=== PATIENT | male | born 1995 | race Caucasian/White ===

== ENCOUNTER → 2020-11-21 08:27 | Outpatient (CLI) | payer OTHER, SELFPAY ==
[2020-11-21] MEDS: COVID-19 VACC #1, MRNA(MOD) 100 MCG/0.5 ML VIAL IM (08:34)
== END ==
PROVIDERS: PCP Family Medicine; Visit Provider Internal Medicine
DX: Z23 Encounter for immunization (principal)
CPT/HCPCS: 0011A; 91301

== ENCOUNTER → 2020-12-20 10:29 | Outpatient (CLI) | payer OTHER, SELFPAY ==
[2020-12-20] MEDS: COVID-19 VACC #2, MRNA(MOD) 100 MCG/0.5 ML VIAL IM (10:32)
== END ==
PROVIDERS: PCP Family Medicine; Visit Provider Internal Medicine
DX: Z23 Encounter for immunization (principal)
CPT/HCPCS: 0012A; 91301

== ENCOUNTER 2021-03-27 14:09 | Emergency (ER) | payer OTHER, SELFPAY ==
[2021-03-27 14:14] VITALS: BP 152/109; PULSE 87; RESP 16; TEMP 36.7; O2SAT 98; BMI 25.8
[2021-03-27 16:00] VITALS: BP 156/76; PULSE 67; TEMP 36.9; O2SAT 99
--- NOTE | 2021-03-27 16:02 | PC.NURSE ---
Patient c/o sore throat x 2 wks. Denies pain with swallowing, mild post-nasal drip, denies fever. Rapid strep negative in triage.
[2021-03-27 16:27] LABS: COVID19 -Nasal RAPID Negative (Negative)
[2021-03-27 16:30] VITALS: BP 141/94; PULSE 71; O2SAT 99
--- NOTE | 2021-03-27 16:45 | ED.URI ---
HPI - URI/Sore Throat <Ponce Tello PA-C - Last Filed: 03/27/21 16:49> General Chief Complaint: Upper Respiratory Symptoms Stated Complaint: throat problems Time Seen by Provider: 03/27/21 16:01 Source: patient Mode of arrival: Ambulatory History of Present Illness HPI Narrative: Catarino presents today with chief complaint of sore throat that started 2 days ago in addition to slight runny nose. He reports an occasional cough. He is vaccinated for COVID and denies any known exposures to anyone that is ill at this time. He denies any significant chest pain, difficulty breathing, headache, nausea, vomiting, diarrhea, abdominal pain, fatigue or any other acute concerns or complaints at this time. He has not tried anything to help alleviate symptoms at this time. Related Data Previous Rx's Medication Instructions Recorded fluoxetine 20 mg tablet 20 mg PO QDAY #90 tab 12/28/17 dextroamphetamine-amphetamine 10 10 mg PO DAILY #13 tab 07/26/18 mg tablet dextroamphetamine-amphetamine ER 20 mg PO QAM #13 cap 07/26/18 20 mg 24hr capsule,extend release (Adderall XR) hydrocodone 5 mg-acetaminophen 325 1 tab PO BID #26 tab 07/26/18 mg tablet ([place]) Allergies Allergy/AdvReac Type Severity Reaction Status Date / Time No Known Drug Allergies Allergy Verified 03/27/21 14:17 Review of Systems <Ponce Tello PA-C - Last Filed: 03/27/21 16:49> Review of Systems Narrative: As per HPI Patient History <Ponce Tello PA-C - Last Filed: 03/27/21 16:49> Medical History (Updated 03/27/21 @ 16:49 by Ponce Tello PA-C) ADHD (attention deficit hyperactivity disorder) Anxiety Chronic low back pain OCD (obsessive compulsive disorder) Social History marital status: unmarried,single number of children: 0 household members: family lives independently: Yes caregiver/support person: No housing: house education level: high school occupational status: employed Smoking Status: Never smoker second hand exposure: No alcohol intake: current substance use type: marijuana Smoking Status: Never smoker alcohol intake frequency: a few times a month Substance Use Type: marijuana Exam <Ponce Tello PA-C - Last Filed: 03/27/21 16:49> Narrative Exam Narrative: Const General: cooperative, healthy appearing, comfortable and no acute distress Nutritional Appearance: average body habitus and well nourished Orientation: alert and oriented x3 [facility] Head: normal to inspection and normocephalic Ears: hearing grossly normal bilaterally, external ears normal, TM's normal bilaterally, EAC's normal, mastoids normal and no periauricular adenopathy Nose: external nose normal, nares normal and no nasal discharge Face and sinus: normal facial exam, sinuses nontender and face symmetric Mouth: oral mucosae normal, lip normal, tongue normal and moist mucous membranes Teeth and gingiva: dentition normal and gingiva normal Throat: posterior oropharynx slightly erythematous without exudate or edema uvula midline, positive postnasal drainage and no uvular edema Eyes periorbital findings normal, eyelids normal, conjunctivae normal Neck: normal visual inspection, full ROM, no lymphadenopathy, no meningeal signs and supple Resp normal respiratory effort, able to speak in complete sentences, not labored and no respiratory distress, clear to auscultation bilaterally, no crackles, no rales and no wheezes Cardio regular rate regular rhythm Heart Sounds: no gallops, no murmurs and no rubs Neuro Alert and Oriented x3, normal gait, moves all extremities. Initial Vital Signs Initial Vital Signs: Vital Signs Temperature 98.1 F 03/27/21 14:14 Pulse Rate 87 03/27/21 14:14 Respiratory Rate 16 03/27/21 14:14 Blood Pressure 152/109 H 03/27/21 14:14 Pulse Oximetry 98 03/27/21 14:14 <Macey Arceo DO - Last Filed: 03/28/21 08:42> Initial Vital Signs Initial Vital Signs: Vital Signs Temperature 98.1 F 03/27/21 14:14 Pulse Rate 87 03/27/21 14:14 Respiratory Rate 16 03/27/21 14:14 Blood Pressure 152/109 H 03/27/21 14:14 Pulse Oximetry 98 03/27/21 14:14 Course <Ponce Tello PA-C - Last Filed: 03/27/21 16:49> Orders Ordered: ED Orders 03/27/21 16:09 COVID19 -Nasal swab/Pre-Proc Stat Vital Signs Vital signs: Vital Signs - 8 hr 03/27/21 14:14 03/27/21 16:00 Temperature 98.1 F 98.5 F Pulse Rate 87 67 Respiratory Rate 16 Blood Pressure 152/109 H 156/76 H Pulse Oximetry 98 99 <Macey Arceo DO - Last Filed: 03/28/21 08:42> Orders Ordered: ED Orders 03/27/21 16:09 COVID19 -Nasal swab/Pre-Proc Stat Vital Signs Vital signs: Vital Signs - 8 hr 03/27/21 14:14 03/27/21 16:00 Temperature 98.1 F 98.5 F Pulse Rate 87 67 Respiratory Rate 16 Blood Pressure 152/109 H 156/76 H Pulse Oximetry 98 99 MDM - URI/Sore Throat <Ponce Tello PA-C - Last Filed: 03/27/21 16:49> Lab Data Labs: Lab Results 03/27/21 Range/Units 16:09 SARS-CoV-2 (PCR) Negative (Negative) Point of Care Testing Rapid Strep A Negative MDM Narrative Medical decision making narrative: Patient is well-appearing at this time and has very reassuring physical examination. No evidence of peritonsillar abscess, retropharyngeal abscess. COVID test is negative as is his strep swab. Will discharge home at this time with symptomatic therapy for viral upper respiratory infection. Return precautions were discussed. Patient verbalizes understanding and agrees to plan and has no further concerns at this time. Thank you A [id number] system was used with the dictation of this note. Please disregard any spelling or grammatical errors. <Macey Arceo, - Last Filed: 03/28/21 08:42> Lab Data Labs: Lab Results 03/27/21 Range/Units 16:09 SARS-CoV-2 (PCR) Negative (Negative) Point of Care Testing Rapid Strep A Negative Discharge Plan Departure Patient Disposition: Home Clinical Impression: Upper respiratory infection Qualifiers: URI type: unspecified viral URI Qualified Code(s): J06.9 - Acute upper respiratory infection, unspecified Activity Restrictions/Additional Instructions: Upper Respiratory infection- likely viral. Recommend symptomatic therapy with hot tea/honey, ibuprofen/tylenol for pain and fever. Throat lozenges for throat pain and drink lots of water and broth. Mucinex, Sudafed, Flonase nasal spray may be helpful. Return precautions include worsening fever or neck stiffness, difficulty breathing, chest pain, lower leg swelling, or any other concerns. Follow up with primary care provider as needed. Patient verbalizes understanding and agrees to plan and has no further concerns at this time. Thank you A [id number] system was used with the dictation of this note. Please disregard any spelling or grammatical errors. Prescriptions: No Action dextroamphetamine-amphetamine [Adderall XR] 20 mg capsule,extended release 24hr 20 mg PO QAM Qty: 13 RF: 0 dextroamphetamine-amphetamine 10 mg tablet 10 mg PO DAILY Qty: 13 RF: 0 hydrocodone-acetaminophen [[place]] 5-325 mg tablet 1 tab PO BID Qty: 26 RF: 0 fluoxetine 20 mg tablet 20 mg PO QDAY Qty: 90 RF: 12 Referrals: Adela Graham MD [Primary Care Provider] - <Macey Arceo DO - Last Filed: 03/28/21 08:42> Cosign ED Attending Quentinature Attestation: I was immediately available in the department for consultation. Documentation has been reviewed.
== END 2021-03-27 17:09 | disposition home or self-care (01) ==
PROVIDERS: Emergency Provider Physician Assistant; PCP Family Medicine
DX: J06.9 Acute upper respiratory infection, unspecified (principal); R05 Cough; Z20.822 Contact with and (suspected) exposure to COVID-19
CPT/HCPCS: 87635; 87880; 99282; C9803

== ENCOUNTER → 2021-04-11 10:47 | Outpatient (CLI) | payer SELFPAY ==
[2021-04-11 12:23] LABS: TSH w/ Reflex to FT4 1.64 uIU/mL (0.47-4.68)
== END ==
PROVIDERS: PCP Family Medicine; Referring Provider Physician Assistant; Visit Provider Physician Assistant
DX: R22.1 Localized swelling, mass and lump, neck (principal)
CPT/HCPCS: 36415; 84443

== ENCOUNTER 2021-04-22 16:44 | Emergency (ER) | payer SELFPAY ==
[2021-04-22 16:49] VITALS: BP 173/90; PULSE 82; RESP 16; TEMP 36.7; O2SAT 98
[2021-04-22 19:00] VITALS: BP 145/84; PULSE 57; O2SAT 99
--- NOTE | 2021-04-22 19:47 | ED_ITS ---
HPI - General Adult <Arcelia Ryan PA-C - Last Filed: 04/22/21 19:57> General Chief complaint: Upper Respiratory Symptoms Stated complaint: lump in throat, hacking, choking,trouble swallowin Time Seen by Provider: 04/22/21 18:04 Source: patient Mode of arrival: Ambulatory History of Present Illness HPI narrative: 25-year-old male with no reported past medical history presents to the ED with throat discomfort, a lump in the throat for 1 month. Patient states that he feels a palpable lump in his throat, a constant urge to clear his throat, cough, burp. Patient denies fever, chills, dysphagia, shortness of breath, chest pain, nausea, vomiting, abdominal pain, lightheadedness, dizziness, syncope. Patient has a strong family history of hypothyroidism, with both siblings being hypothyroid. Patient was seen at the walk-in clinic on 04/11/2021 for the same complaint, TSH normal. Patient denies a history of GERD, however says that he has been frequently burping over the last month. Related Data Previous Rx's Medication Instructions Recorded fluoxetine 20 mg tablet 20 mg PO QDAY #90 tab 12/28/17 dextroamphetamine-amphetamine 10 10 mg PO DAILY #13 tab 07/26/18 mg tablet dextroamphetamine-amphetamine ER 20 mg PO QAM #13 cap 07/26/18 20 mg 24hr capsule,extend release (Adderall XR) hydrocodone 5 mg-acetaminophen 325 1 tab PO BID #26 tab 07/26/18 mg tablet ([place]) Allergies Allergy/AdvReac Type Severity Reaction Status Date / Time No Known Drug Allergies Allergy Verified 04/11/21 10:39 Review of Systems <Arcelia Ryan PA-C - Last Filed: 04/22/21 19:57> Constitutional Constitutional: Denies chills, Denies fatigue, Denies fever(s), Denies frequent falls, Denies lethargy and Denies weakness Eyes Eyes: Denies change in vision, Denies eye discharge, Denies irritation and Denies loss of vision ENT Ears, Nose, Mouth, and Throat: Denies change in voice, Denies dizziness, Denies nasal congestion, Denies neck pain, Denies sore throat and Denies throat swelling Comments: Lump in throat. Coughing to clear throat Cardiovascular Cardiovascular: Denies chest pain, Denies irregular heart rhythm, Denies lightheadedness, Denies palpitations, Denies dyspnea, Denies dyspnea on exertion and Denies orthopnea Respiratory Respiratory: Reports cough, Denies dyspnea, Denies dyspnea on exertion and Denies wheezing Gastrointestinal Gastrointestinal: Denies abdominal pain, Denies change in bowel habits, Denies diarrhea, Denies nausea and Denies vomiting Comments: Burping constantly Musculoskeletal Musculoskeletal: Denies neck pain and Denies numbness Integumentary/Breasts Skin/Breast: Denies pruritus, Denies erythema, Denies rash and Denies wounds Neurologic Neurologic: Denies behavioral changes, Denies confusion, Denies dizziness, Denies frequent falls, Denies loss of vision, Denies numbness and Denies weakness Psychiatric Psychiatric: Denies anxiety, Denies behavioral changes, Denies confusion, Denies depression, Denies homicidal ideation and Denies suicidal ideation Endocrine Endocrine: Denies fatigue, Denies flushing and Denies palpitations Hematologic/Lymphatic Hematologic/Lymphatic: Denies easy bruising Allergic/Immunologic Allergic/Immunologic: Denies urticaria, Denies throat swelling and Denies wheezing Patient History <Arcelia Ryan PA-C - Last Filed: 04/22/21 19:57> Medical History ADHD (attention deficit hyperactivity disorder) Anxiety Chronic low back pain OCD (obsessive compulsive disorder) Social History marital status: unmarried,single number of children: 0 household members: family lives independently: Yes caregiver/support person: No housing: house education level: high school occupational status: employed Smoking Status: Current every day smoker second hand exposure: No alcohol intake: current substance use type: marijuana Smoking Status: Current every day smoker tobacco type: cigarettes and vaping alcohol intake frequency: a few times a month Substance Use Type: marijuana Exam <Arcelia Ryan PA-C - Last Filed: 04/22/21 19:57> Initial Vital Signs Initial Vital Signs: Vital Signs Temperature 98.1 F 04/22/21 16:49 Pulse Rate 82 04/22/21 16:49 Respiratory Rate 16 04/22/21 16:49 Blood Pressure 173/90 H 04/22/21 16:49 Pulse Oximetry 98 04/22/21 16:49 Const General: cooperative [facility] Head: normocephalic and atraumatic Ears: external ears normal and TM's normal bilaterally Nose: external nose normal and No nasal discharge Face and sinus: sinuses nontender, face symmetric, no sinus tenderness and No dry mucous membranes Mouth: oral mucosae normal and moist mucous membranes Teeth and gingiva: dentition normal Throat: tonsils normal and uvula midline Eyes General: appearance normal, both eyes and all related structures Eyelids: eyelids normal Conjunctivae: conjunctivae normal Sclera: sclerae normal Pupils: PERRL EOM: EOM intact bilaterally Neck Neck: normal visual inspection, trachea midline, No lymphadenopathy, No midline deformity and No JVD Lymphatic: No lymphedema Other: No tracheal deviation. Thyroid palpable, no nodules palpated. Not tender to palpation. Chest Chest: normal inspection of the chest Resp Effort & Inspection: normal respiratory effort, able to speak in complete sentences, no respiratory distress and no use of accessory muscles Auscultation: clear to auscultation bilaterally, no rales, no rhonchi and no wheezes Cardio Rate: regular rate Rhythm: regular rhythm Heart Sounds: no click, no gallops, no murmurs and no rubs Pulses: normal peripheral pulses GI Inspection: non-distended Palpation: soft, no hepatosplenomegaly, No guarding, No pulsatile mass and No tender Auscultation: normal bowel sounds Back/Spine/Pelvis Back: No CVA tenderness Cervical Spine: cervical ROM normal and No pain with cervical ROM Thoracic/Lumbar Spine: thoracic and lumbar spine normal to inspection Skin General: no rashes or lesions noted, No jaundice and No petechiae Neuro General: patient alert, patient oriented x3, gait normal and no focal motor de ficits Speech: speech normal Extrem General: full ROM, no clubbing, cyanosis or edema, no pedal edema and no calf tenderness Psych Appearance: well kempt Mental Status: mental status grossly normal Attitude: cooperative Thought Content: normal and suicidality Judgment: judgment good <Clinton Dyer DO - Last Filed: 04/23/21 04:53> Initial Vital Signs Initial Vital Signs: Vital Signs Temperature 98.1 F 04/22/21 16:49 Pulse Rate 82 04/22/21 16:49 Respiratory Rate 16 04/22/21 16:49 Blood Pressure 173/90 H 04/22/21 16:49 Pulse Oximetry 98 04/22/21 16:49 Course <Arcelia Ryan PA-C - Last Filed: 04/22/21 19:57> Vital Signs Vital signs: Vital Signs - 8 hr 04/22/21 16:49 04/22/21 19:00 Temperature 98.1 F Pulse Rate 82 57 L Respiratory Rate 16 Blood Pressure 173/90 H 145/84 H Pulse Oximetry 98 99 <Clinton Dyer DO - Last Filed: 04/23/21 04:53> Vital Signs Vital signs: Vital Signs - 8 hr 04/22/21 16:49 04/22/21 19:00 Temperature 98.1 F Pulse Rate 82 57 L Respiratory Rate 16 Blood Pressure 173/90 H 145/84 H Pulse Oximetry 98 99 Medical Decision Making <Arcelia Ryan PA-C - Last Filed: 04/22/21 19:57> Medical Records Medical records reviewed: Yes I reviewed the patient's medical records. MDM Narrative Medical decision making narrative: 25-year-old male with no reported past medical history presents to the ED with throat discomfort, a lump in the throat for 1 month. Concern for thyroid derangement versus laryngopharyngeal GERD. Patient does not have any acute symptoms that are concerning for a thyroid emergency. Patient has no difficulty swallowing, breathing. Physical exam geovanni ssuring for a patent airway. Will discharge home with ED return precautions, PCP follow-up for further thyroid workup, trial of Pepcid for 2 weeks. Discharge Plan Departure Patient Disposition: Home Clinical Impression: Throat discomfort Instructions: DI for Gastroesophageal Reflux Disease (GERD) Activity Restrictions/Additional Instructions: You were evaluated in the ED today for throat discomfort. Your symptoms are likely due to acid reflux. You can take Pepcid twice a day for 14 days. Given a strong family history hypothyroidism, please follow-up with your PCP to get further thyroid studies. Your TSH from 04/11/2021 was normal, however further studies and imaging are recommended. These return to the ED if you have any trouble swallowing, trouble breathing, chest pain. Prescriptions: No Action dextroamphetamine-amphetamine [Adderall XR] 20 mg capsule,extended release 24hr 20 mg PO QAM Qty: 13 RF: 0 dextroamphetamine-amphetamine 10 mg tablet 10 mg PO DAILY Qty: 13 RF: 0 hydrocodone-acetaminophen [[place]] 5-325 mg tablet 1 tab PO BID Qty: 26 RF: 0 fluoxetine 20 mg tablet 20 mg PO QDAY Qty: 90 RF: 12 Referrals: Adela Graham MD [Primary Care Provider] - <Clinton Dyer DO - Last Filed: 04/23/21 04:53> Cosign ED Attending Quentinature Attestation: I was immediately available in the department for consultation. This documentation has been reviewed and I agree with assessment and plan. Supervised by Clinton Dyer DO
== END 2021-04-22 19:45 | disposition home or self-care (01) ==
PROVIDERS: Emergency Provider Student in an Organized Health Care Education/Training Program; PCP Family Medicine
DX: R07.0 Pain in throat (principal)
CPT/HCPCS: 99281

== ENCOUNTER 2021-05-24 13:15 | Emergency (ER) | payer SELFPAY ==
[2021-05-24 13:26] VITALS: BP 141/90; PULSE 56; RESP 16; TEMP 36.6; O2SAT 98; BMI 25.1
--- NOTE | 2021-05-24 13:37 | ED.URI ---
HPI - URI/Sore Throat General Chief Complaint: Upper Respiratory Symptoms Stated Complaint: White lump in back of throat Time Seen by Provider: 05/24/21 13:36 Source: patient Mode of arrival: Ambulatory Limitations: no limitations History of Present Illness HPI Narrative: The patient complains of irritation in his throat for 3 days. He has a white spot on his left tonsil. He has no fever, no erythema to the tonsils. He has no purulent drainage from the tonsils. He denies dysphagia. He has no URI symptoms. He has no fever chills. He does not have chronic ENT issues. Related Data Previous Rx's Medication Instructions Recorded fluoxetine 20 mg tablet 20 mg PO QDAY #90 tab 12/28/17 dextroamphetamine-amphetamine 10 10 mg PO DAILY #13 tab 07/26/18 mg tablet dextroamphetamine-amphetamine ER 20 mg PO QAM #13 cap 07/26/18 20 mg 24hr capsule,extend release (Adderall XR) hydrocodone 5 mg-acetaminophen 325 1 tab PO BID #26 tab 07/26/18 mg tablet ([place]) Allergies Allergy/AdvReac Type Severity Reaction Status Date / Time No Known Drug Allergies Allergy Verified 04/11/21 10:39 Review of Systems Constitutional Constitutional: Denies chills and Denies fever(s) ENT Ears, Nose, Mouth, and Throat: Reports as per HPI, Denies dental pain, Denies dysphagia, Denies dry mouth, Reports mouth pain, Denies neck mass and Denies sinus pressure Cardiovascular Cardiovascular: Denies dyspnea Respiratory Respiratory: Denies cough and Denies dyspnea Gastrointestinal Gastrointestinal: Denies dysphagia Patient History Medical History ADHD (attention deficit hyperactivity disorder) Anxiety Chronic low back pain OCD (obsessive compulsive disorder) Social History marital status: unmarried,single number of children: 0 household members: family lives independently: Yes caregiver/support person: No housing: house education level: high school occupational status: employed Smoking Status: Former smoker second hand exposure: No alcohol intake: current substance use type: marijuana Smoking Status: Former smoker tobacco type: cigarettes and vaping alcohol intake frequency: a few times a month Substance Use Type: marijuana Exam Initial Vital Signs Initial Vital Signs: Vital Signs Temperature 97.8 F 05/24/21 13:26 Pulse Rate 56 L 05/24/21 13:26 Respiratory Rate 16 05/24/21 13:26 Blood Pressure 141/90 H 05/24/21 13:26 Pulse Oximetry 98 05/24/21 13:26 Const General: cooperative, healthy appearing and comfortable [facility] Head: normocephalic and atraumatic Face and sinus: other (Left 4 mm tonsil stone. Tonsils are otherwise normal.) Mouth: other (Otherwise normal.) Neck Neck: No lymphadenopathy Course Vital Signs Vital signs: Vital Signs - 8 hr 05/24/21 13:26 Temperature 97.8 F Pulse Rate 56 L Respiratory Rate 16 Blood Pressure 141/90 H Pulse Oximetry 98 MDM - URI/Sore Throat Medical Records Medical records narrative: The tonsil stone does not easily flick out. I advised salt water gargles. If not improved in 2 weeks follow-up with ENT. Discharge Plan Departure Patient Disposition: Home Clinical Impression: Tonsil stone Activity Restrictions/Additional Instructions: You have what appears to be a tonsil stone. This may be an annoying situation, but not a medically concerning issue. Google this for more research. Salt water gargles with warm water frequently for the next several days. Follow-up with ENT for repeat evaluation. I will give you contact information for Dr. Velazquez. Return here as needed. Prescriptions: No Action dextroamphetamine-amphetamine [Adderall XR] 20 mg capsule,extended release 24hr 20 mg PO QAM Qty: 13 RF: 0 dextroamphetamine-amphetamine 10 mg tablet 10 mg PO DAILY Qty: 13 RF: 0 hydrocodone-acetaminophen [[place]] 5-325 mg tablet 1 tab PO BID Qty: 26 RF: 0 fluoxetine 20 mg tablet 20 mg PO QDAY Qty: 90 RF: 12 Referrals: Scotty Velazquez MD [Physician] - Adela Graham MD [Primary Care Provider] -
== END 2021-05-24 13:59 | disposition home or self-care (01) ==
PROVIDERS: Emergency Provider Emergency Medicine; PCP Family Medicine
DX: J35.8 Other chronic diseases of tonsils and adenoids (principal)
CPT/HCPCS: 99281